=== PATIENT | male | born 1975 | race Two or more races ===

== ENCOUNTER 2020-09-25 20:49 | Inpatient (IN) | payer MEDICAID, OTHER, SELFPAY ==
[~2020-09-25] VITALS: Ht 188 cm; Wt 95.7 kg
--- NOTE | 2020-09-25 22:40 | NUR ---
PT CAME TO THE ER FOR FEVER, BODY ACHE X 1 WK, + N/V X 1 DAY. PT TESTED COVID NEGATIVE X 4 DAYS AGO. PT AAOX4, VSS, RESPIRATIONS EVEN AND UNLABORED ON RA W/ NAD NOTED. PT CONNECTED TO THE MONITOR AND POX
[2020-09-25] MEDS ORDERED: KETOROLAC TROMETHAMINE 15 MG/ML VIAL ONE (22:55)
[2020-09-25] MEDS ORDERED: ACETAMINOPHEN ES 500 MG TABLET ONE (22:55)
[2020-09-25] MEDS ORDERED: KETOROLAC TROMETHAMINE INJ 30 MG/ML VIAL IV ONE (23:00)
[2020-09-25] MEDS ORDERED: ACETAMINOPHEN ES 500 MG TABLET PO ONE (23:00)
[2020-09-25] MEDS ORDERED: IV NS 0.9% 1,000 ML IV ONE (23:00)
[2020-09-25 23:06] LABS: BASOPHILS # (AUTO) 0.1 /CMM (0.0-0.2); BASOPHILS % (AUTO) 0.3 % (0.0-2.0); EOSINOPHILS % (AUTO) 0.1 % (0.0-6.0); HEMATOCRIT 42 % (39-51); HEMOGLOBIN 13.8 g/dL (13.5-17.5); LYMPHOCYTES # (AUTO) 1.2 /CMM (0.8-4.8); LYMPHOCYTES % (AUTO) 3.5 % (20.0-44.0); MEAN CORPUSCULAR HGB CONC 33 g/dl (31.0-36.0); MEAN CORPUSCULAR VOLUME 92 fL (80-96); MONOCYTES # (AUTO) 1.6 /CMM (0.1-1.30); MONOCYTES % (AUTO) 4.9 % (2.0-12.0); NEUTROPHILS # (AUTO) 30.4 /CMM (1.8-8.9); NEUTROPHILS % (AUTO) 91.2 % (43.0-81.0); PLATELET COUNT (AUTO) 647 /CMM (150-450); RED BLOOD CELL COUNT(AUTO) 4.59 MIL/uL (4.5-6.0)
[2020-09-25 23:10] LABS: WHITE BLOOD COUNT (AUTO) 33.3 K/uL (4.3-11.0)
[2020-09-25 23:14] LABS: CALCIUM, SERUM 9.4 mg/dL (8.5-10.1); POTASSIUM 3.6 mmol/L (3.5-5.1)
[2020-09-25 23:20] LABS: ALBUMIN 2.8 g/dL (3.4-5.0); BILIRUBIN,TOTAL 1.1 mg/dL (0.2-1.0); TOTAL PROTEIN, SERUM 8.1 g/dL (6.4-8.2)
--- NOTE | 2020-09-25 23:25 | NUR ---
MADINA COLLECTED AND SENT TO LAB
[2020-09-25 23:53] LABS: BAND % (MANUAL) 5 % (0.0-5.0); LYMPHOCYTES % (MANUAL) 5 % (16-48); MONOCYTES % (MANUAL) 9 % (0-11.0); NEUTROPHILS % (MANUAL) 81 (42-76)
[2020-09-25] MEDS ORDERED: PIPERACILLIN /TAZOBACTAM 3.375 G VIAL IV ONE (23:58)
[2020-09-26] MEDS ORDERED: VANCOMYCIN 1 GM in IV D5W 250 ML IV ONE ×2
[2020-09-26] MEDS ORDERED: IV NS 0.9% 1,000 ML BAG IV ONE
[2020-09-26] MEDS ORDERED: PIPERACILLIN /TAZOBACTAM 3.375 G in IV D5W 50 ML IV ONE ×2
--- NOTE | 2020-09-26 00:14 | NUR ---
REC'S POSITIVE COVID RESULT
[2020-09-26] MEDS ORDERED: VANCOMYCIN 1 GM VIAL ONE (00:39)
[2020-09-26] MEDS ORDERED: HYDROCODONE/APAP 5/325MG TABLET PO PRN (01:00)
[2020-09-26] MEDS ORDERED: MAGNESIUM HYDROXIDE 30 ML UDC PO PRN (01:00)
[2020-09-26] MEDS ORDERED: Z GUARD REMEDY 2 OZ OINT TP PRN (01:00)
[2020-09-26] MEDS ORDERED: ONDANSETRON HCL/PF 4 MG/2 ML VIAL IVP PRN (01:00)
[2020-09-26] MEDS ORDERED: ACETAMINOPHEN 325 MG TABLET PO PRN (01:00)
[2020-09-26] MEDS ORDERED: MAG HYDROX/AL HYDROX/SIMETH 30 ML UDC PO PRN (01:00)
--- NOTE | 2020-09-26 01:03 | NUR ---
ATTEMPTED TO GIVE REPORT, NURSE NOT AVAILABLE
--- NOTE | 2020-09-26 01:24 | NUR ---
REPORT GIVEN TO ANNE JONES FOR SAMUEL
[2020-09-26 02:20] VITALS: BP 108/54
--- NOTE | 2020-09-26 02:38 | NUR ---
PT TRANSFERRED TO ROOM IN STABLE CONDITION PER [employer] PROTOCOL
--- NOTE | 2020-09-26 02:40 | NUR ---
MS BUSINESS OFFICE COORDINATOR NOTE ADMITTED A 45YR OLD MALE. FULL CODE WITH NO KNOWN ALLERGIES. ADMITTING DX OF COVID PNA.MS STATUS. A/0X4. BREATHING EVEN AND UNLABORED WITH NO SOB OR ACUTE DISTRESS NOTED. 02 SATURATION AT 97%. DENIES ANY PAIN OR DISCOMFORT. RIGHT AC #20 PATENT AND INTACT. IV MEDICATION INFUSING WELL. SKIN INTACT. INDEPENDENT WITH AMBULATORY. ALL NEEDS RENDERED. CALL LIGHT WITHIN REACH. BED IN LOWEST POSITION. WILL CONTINUE TO MONITOR.
[2020-09-26] MEDS ORDERED: CEFTRIAXONE 1 G VIAL ONE (02:49)
[2020-09-26] MEDS: CEFTRIAXONE 1 G in IV D5W 50 ML IV SCH (03:06)
[2020-09-26] MEDS: DEXAMETHASONE SOD PHOSPHATE 10 MG/ML VIAL IJ SCH ×2 (03:06→10:07)
[2020-09-26] MEDS: ENOXAPARIN SODIUM 40 MG/0.4 ML DISP.SYRIN SQ SCH ×2 (03:07→20:20)
[2020-09-26 04:00] VITALS: BP 116/60
[2020-09-26] MEDS ORDERED: AZITHROMYCIN 500 MG VIAL ONE (05:12)
[2020-09-26] MEDS: AZITHROMYCIN 500 MG in IV D5W 250 ML IV SCH (05:56)
--- NOTE | 2020-09-26 06:40 | NUR ---
MS RN note Pt in bed, awake , a/o x4. Breathing even and unlabored in RA. O2 saturation at 99%. No sob or acute distress noted. RAC patent and intact. Medication infusing well. All needs rendered. Bed in lowest position. Call light within reach. Will endorse to am nurse for continuity of care.
--- NOTE | 2020-09-26 07:30 | NUR ---
RN OPENING NOTES PATIENT IN BED, A/OX4, DENIES PAIN, ON ROOM AIR, SATURATING 98%, NO SOB, NO DISTRESS NOTED, RESPIRATIONS EVEN AND UNLABORED, MED SURG STATUS, ABLE TO AMBULATE, SKIN IS INTACT, IV LINE PRESENT ON R AC G20, PATENT, FLUSHED AND INTACT. BED IS LOCKED, IN LOWEST POSITION, CALL LIGHT IN REACH, WILL CONT TO MONITOR
[2020-09-26 08:00] VITALS: BP 106/72
[2020-09-26] MEDS: VANCOMYCIN 1.25 GM in IV D5W 250 ML IV SCH ×2 (10:07→18:32)
[2020-09-26 12:00] VITALS: BP 106/72
--- NOTE | 2020-09-26 15:00 | NUR ---
PATIENT IN ROOM, RESTING COMFORTABLY, DENIES PAIN, RESPIRATION WELL, NO SOB NOTED
[2020-09-26 16:00] VITALS: BP 121/69
--- NOTE | 2020-09-26 19:06 | NUR ---
CLOSING NOTES REMAINS IN ROOM, UNDER COVID ISOLATION, PCR TEST RESULTS PENDING, MEDICATIONS GIVEN, COMFORT NEEDS ATTENDED, EDUCATIONS PROVIDED, SAFETY MEASURES IMPLEMENTED, WILL ENDORSE TO PM SHIFT RN FOR SAMUEL
--- NOTE | 2020-09-26 19:15 | NUR ---
MS RN OPENING NOTES PATIENT AWAKE IN BED. A/OX4. STABLE ON RA; NO S/S ACUTE RESPIRATORY DISTRESS; BREATHING IS EVEN AND UNLABORED. NO C/O PAIN. IV PRESENT ON RIGHT AC, SIZE 20, INTACT & PATENT, HEP LOCKED. SAFETY MEASURES IN PLACE AND PATIENT'S NEEDS MET. BED LOCKED, SIDE RAILS X2, CALL LIGHT WITHIN REACH. WILL CONTINUE TO MONITOR.
[2020-09-26 20:00] VITALS: BP 112/65
[2020-09-27] MEDS: CEFTRIAXONE 1 G in IV D5W 50 ML IV SCH (01:22)
[2020-09-27] MEDS: AZITHROMYCIN 500 MG in IV D5W 250 ML IV SCH (01:52)
[2020-09-27] MEDS: VANCOMYCIN 1.25 GM in IV D5W 250 ML IV SCH (03:12)
[2020-09-27 04:00] VITALS: BP 100/64
[2020-09-27 06:22] LABS: BASOPHILS # (AUTO) 0.1 /CMM (0.0-0.2); BASOPHILS % (AUTO) 0.6 % (0.0-2.0); EOSINOPHILS % (AUTO) 0.1 % (0.0-6.0); HEMATOCRIT 38 % (39-51); HEMOGLOBIN 12.9 g/dL (13.5-17.5); LYMPHOCYTES # (AUTO) 2.4 /CMM (0.8-4.8); LYMPHOCYTES % (AUTO) 9.7 % (20.0-44.0); MEAN CORPUSCULAR HGB CONC 34 g/dl (31.0-36.0); MEAN CORPUSCULAR VOLUME 91 fL (80-96); MONOCYTES # (AUTO) 1.4 /CMM (0.1-1.30); MONOCYTES % (AUTO) 5.4 % (2.0-12.0); NEUTROPHILS % (AUTO) 84.2 % (43.0-81.0); PLATELET COUNT (AUTO) 592 /CMM (150-450); RED BLOOD CELL COUNT(AUTO) 4.19 MIL/uL (4.5-6.0)
[2020-09-27 06:48] LABS: CALCIUM, SERUM 8.6 mg/dL (8.5-10.1); CREATININE 0.9 mg/dL (0.6-1.3); MAGNESIUM 2.2 mg/dL (1.8-2.4); PHOSPHORUS 1.9 mg/dL (2.5-4.9); POTASSIUM 3.6 mmol/L (3.5-5.1)
--- NOTE | 2020-09-27 07:15 | NUR ---
RN OPENING NOTES PATIENT AWAKE, A/OX4. ON ROOM AIR, SATURATING @100%. NO SOB OR ANY ACUTE RESPIRATORY DISTRESS NOTED. AMBULATORY. SKIN IS INTACT. R AC #20, INTACT, PATENT AND FLUSHED. NO PAIN REPORTED AT THIS TIME. SAFETY MEASURES IN PLACE. CALL LIGHT WITHIN REACH. BED LOCKED AND AT LOWEST POSITION. WILL CONTINUE TO MONITOR
--- NOTE | 2020-09-27 07:52 | NUR ---
MS RN CLOSING NOTES PATIENT SLEEPING, EASY TO AWAKEN. A/OX4. STABLE ON RA; NO S/S ACUTE RESPIRATORY DISTRESS; BREATHING IS EVEN AND UNLABORED. NO S/S OF PAIN NOTED. IV REMAINS INTACT AND PATENT. SAFETY MEASURES IN PLACE AND PATIENT'S NEEDS MET. BED LOCKED, SIDE RAILS X2, CALL LIGHT WITHIN REACH. ENDORSED TO DAY SHIFT RN PLAN OF CARE.
[2020-09-27] MEDS: DEXAMETHASONE SOD PHOSPHATE 10 MG/ML VIAL IJ SCH (09:18)
[2020-09-27] MEDS ORDERED: PRED20TA PO (09:53)
[2020-09-27] MEDS ORDERED: INFLUENZA VACCINE 2020-21 0.5 ML DISP.SYRIN IM ONE (11:00)
[2020-09-27] MEDS ORDERED: PNEUMOCOCCAL 23-VAL P-SAC VAC 0.5 ML VIAL SQ ONE (11:00)
[2020-09-27] MEDS ORDERED: K PHOS NEUTRAL 250 MG TABLET PO ONE (11:30)
--- NOTE | 2020-09-27 11:50 | NUR ---
RN CLOSING NOTES PT DISCHARGED TO HOME. MEDICALLY STABLE. VS WNL. FLU AND PNEUMO VACCINE ADMINISTERED. SKIN IS INTACT. DISCHARGE INSTRUCTION PROVIDED. VERBALIZED UNDERSTANDING. WENT HOME VIA PRIVATE CAR ACCOMPANIED BY ARMIN ANDRES
== END 2020-09-27 11:55 | disposition home or self-care (01) | DRG 137 ==
LOC: ER 20:50 → TELE1 09-26 00:42 → MEDSG1 09-26 02:36
PROVIDERS: ADMIT Internal Medicine; ATTEND Family Medicine
DX: U07.1 COVID-19 (principal); J96.01 Acute respiratory failure with hypoxia; E88.09 Other disorders of plasma-protein metabolism, not elsewhere classified; J12.89 Other viral pneumonia; D47.3 Essential (hemorrhagic) thrombocythemia; J43.9 Emphysema, unspecified; E44.0 Moderate protein-calorie malnutrition; J98.19 Other pulmonary collapse; F17.200 Nicotine dependence, unspecified, uncomplicated
CPT/HCPCS: 36415; 71045-TC; 80048-TC; 80053-TC; 83735-TC; 84100-TC; 85025-TC; 85378-TC; 87040-TC; 87081-TC; 90732; C9803; G0378; J0456; J0696; J1100; J1650; J1885; J2543; J3370; J7030; J7040; J7050; J7060; Q2036; U0003